=== PATIENT | male | born 1985 | race Caucasian/White ===

== ENCOUNTER 2016-10-09 06:27 | Emergency (ER) | payer SELFPAY ==
[~2016-10-09] VITALS: Ht 177.8 cm; Wt 92.4 kg
[2016-10-09 06:29] VITALS: BP 127/79
== END 2016-10-09 07:39 | disposition home or self-care (01) ==
LOC: ED 07:30
DX: S60.221A Contusion of right hand, initial encounter (principal); S43.401A Unspecified sprain of right shoulder joint, initial encounter; K21.9 Gastro-esophageal reflux disease without esophagitis; X58.XXXA Exposure to other specified factors, initial encounter; Y93.89 Activity, other specified; Y99.8 Other external cause status; Y92.009 Unspecified place in unspecified non-institutional (private) residence as the place of occurrence of the external cause
CPT/HCPCS: 29125; 99284; 99285

== ENCOUNTER 2020-03-04 09:47 | Emergency (ER) | payer SELFPAY ==
[~2020-03-04] VITALS: Ht 177.8 cm; Wt 81.4 kg
--- NOTE | 2020-03-04 10:21 | NUR ---
ASSUMED CARE OF PT AT THIS TIME FROM [facility]. AMBULATED TO ROOM WITH SLOW STEADY GAIT. 34 Y/O M PRESENTS STATING "FELL 2 DAYS AGO, WAS LIFTING HEAVY THING AND STEPPED BACK AND SLIPPED, FELL ONTO MY BUTT, MY LOWER RIGHT SIDE AND LIKE TAILBONE HURT, HURTS MORE WHEN I WALK, SOMETIMES SHARP PAIN GOING DOWN RIGHT LEG." CMS INTACT. SKIN PWD. PEDAL PULSES NORMAL AND STRONG. DENIES LOC WITH FALL. DENIES MIDLINE NECK OR BACK PAIN. KISHAN CROWLEY AT BEDSIDE FOR EVALUATION. AWAITING ORDERS. CONT PULSE OX, BP MONITORS APPLIED. VSS. CALL LIGHT IN REACH. FALL PRECUATIONS IN PLACE. SIDE RAILS UPX2. A&OX4.
[2020-03-04] MEDS ORDERED: KETOROLAC 30 MG/1 ML IM ONE (11:00)
[2020-03-04] MEDS ORDERED: KETOROLAC 60 MG/2 ML ONE (11:04)
--- NOTE | 2020-03-04 11:07 | NUR ---
PT IN RAD, TO MEDICATE UPON RETURN
--- NOTE | 2020-03-04 11:26 | NUR ---
PT REMAINS IN RAD
--- NOTE | 2020-03-04 11:33 | NUR ---
PT BACK FROM RAD, MEDICATED PER MD ORDER FOR 810 BACK/SACRUM PAIN. VSS. CALL LIGHT IN REACH. FALL PRECAUTIONS IN PLACE. DENIES NEED TO USE RESTROOM. AWAITING RAD RESULTS.
--- NOTE | 2020-03-04 11:58 | NUR ---
KISHAN CROWLEY AT BEDSIDE FOR RECHECK, DISCUSSING PAIN, RESULTS AND DISCHARGE POC. AWAITING D/C PAPERS FROM ERP.
--- NOTE | 2020-03-04 12:20 | NUR ---
CONTINUE AWAITING CHART AND DISCHARGE PAPERS FROM ERP. KISHAN AT BEDSIDE SPEAKING WITH PT AND ANSWERING QUESTIONS.
[2020-03-04 12:49] VITALS: BP 116/79
== END 2020-03-04 12:52 | disposition home or self-care (01) ==
LOC: ED 10:52
DX: S30.0XXA Contusion of lower back and pelvis, initial encounter (principal); M54.16 Radiculopathy, lumbar region; X58.XXXA Exposure to other specified factors, initial encounter; Y93.89 Activity, other specified; Y92.89 Other specified places as the place of occurrence of the external cause; Y99.8 Other external cause status
CPT/HCPCS: 72110; 72220; 99284; J1885

== ENCOUNTER 2020-06-27 15:11 | Emergency (ER) | payer SELFPAY ==
[~2020-06-27] VITALS: Ht 177.8 cm; Wt 82.0 kg
--- NOTE | 2020-06-27 15:27 | NUR ---
PATIENT BIB [facility] WITH CHIEF C/O ALOC. PER EMS PATIENT WAS FOUND IN HIS CAR UNRESPONSIVE, [employer] OF 3 AND PINPOINT PUPILS, O2 SATURATION WAS 80% RA. PER EMS WHEN THEY INSERTED AN NPA, PATIENT BECAME MORE RESPONSIVE BUT WAS ALTERED FOR ABOUT 5-10 MINUTES. OXYCODONE BOTTLE FOUND IN CAR ALONG WITH MARIJUANA PARAPHENILIA PER EMS. PATIENT'S FIRST 12 LEAD SHOWED A-FIB WITH RVR 150-170S. PATIENT RECEIVED A LITER OF NS, HR DECREASESED TO 100-110 ST. PATIENT O2 SATURATION UP TO 92% ON 2 LITERS NC PER EMS. EMS REPORTS THAT BOTTLE OF OXYCODONE FOUND IN PATIENT'S CAR IS A OXYCODONE "KNOCK OFF FROM THE [place] LACED WITH FENTANYL." BLOOD SUGAR EN ROUTE 273, 20 GAUGE IV STARTED EN ROUTE. PATIENT A&OX4, NADN, ST NOTED ON MONITOR, ALL OTHER VITALS STABLE, O2 SATURATION IS 95% ON 2 LPM NC, CALL LIGHT WITHIN REACH.
--- NOTE | 2020-06-27 15:40 | NUR ---
ER PROVIDER AT BEDSIDE FOR EVALUATION.
--- NOTE | 2020-06-27 15:49 | NUR ---
PATIENT AMBULATED TO BATHROOM FOR URINE SAMPLE WITH STEADY GAIT.
[2020-06-27] MEDS ORDERED: NALOXONE 0.4 MG/ML, 1ML IVPush PRN (16:00)
--- NOTE | 2020-06-27 16:09 | NUR ---
PATIENT REQUESTING WATER AND FOOD, SPOKE WITH ER PROVIDER, OKAY FOR PATIENT TO HAVE WATER AND FOOD, NO URINE SAMPLE NEEDED. WATER PROVIDED TO PATIENT, FOOD TRAY ORDERED.
--- NOTE | 2020-06-27 16:37 | NUR ---
FOOD TRAY ORDERED.
--- NOTE | 2020-06-27 17:03 | NUR ---
BREAK RN: PT RESTING IN ROOM. VS STABLE. NO ACUTE DISTRESS NOTED. CALL LIGHT IN PLACE. WILL CONTINUE TO MONITOR.
--- NOTE | 2020-06-27 17:33 | NUR ---
PATIENT PACING AROUND BED, ASKING TO GO HOME. REMOVED OXYGEN, O2 SATURATION IS 92-94% ON RA. SPOKE WITH ER PROVIDER, SHE WOULD LIKE TO OBSERVED PATIENT UNTIL 1800 AND THEN IF STABLE HE CAN LEAVE. PATIENT UPDATED ON POC.
[2020-06-27 17:36] VITALS: BP 118/69
--- NOTE | 2020-06-27 17:37 | NUR ---
REPORT GIVEN TO SHELL ENCINAS
--- NOTE | 2020-06-27 18:03 | NUR ---
Patient given discharge instructions and they have confirmed that they understand the instructions. Patient stable and ambulatory with steady gait from ED.
== END 2020-06-27 18:03 | disposition home or self-care (01) ==
LOC: ED 16:30
DX: T40.2X3A Poisoning by other opioids, assault, initial encounter (principal); R41.82 Altered mental status, unspecified; K21.9 Gastro-esophageal reflux disease without esophagitis; F17.210 Nicotine dependence, cigarettes, uncomplicated; Y92.89 Other specified places as the place of occurrence of the external cause
CPT/HCPCS: 99283